=== PATIENT | male | born 1945 | race Caucasian/White ===

== ENCOUNTER 2017-10-31 14:50 | Emergency (ER) | payer MEDICAID, OTHER ==
[~2017-10-31] VITALS: Ht 165.1 cm; Wt 77.1 kg
--- NOTE | 2017-10-31 14:50 | NUR ---
LEFT EYE PAIN X 2 WEEKS.
[2017-10-31] MEDS: TETRACAINE HCL 0.5% OPHTALMIC 15 ML BOTTLE OP ONE (15:30)
[2017-10-31] MEDS: FLUORESCEIN SODIUM OPHTH 1 EA STRIP OP ONE (15:56)
[2017-10-31 15:57] VITALS: BP 120/75
--- NOTE | 2017-10-31 15:57 | NUR ---
Patient discharged to home in stable condition. Written and verbal after care instructions given. Patient verbalizes understanding of instruction.
== END 2017-10-31 16:11 | disposition home or self-care (01) ==
LOC: ER 14:54
DX: H53.9 Unspecified visual disturbance (principal); E11.9 Type 2 diabetes mellitus without complications; I10 Essential (primary) hypertension
CPT/HCPCS: A4606; Z7610

== ENCOUNTER 2018-01-30 11:23 | Emergency (ER) | payer MEDICAID ==
[~2018-01-30] VITALS: Ht 165.1 cm; Wt 72.1 kg
[2018-01-30 11:23] VITALS: BP 133/61
== END 2018-01-30 12:40 | disposition home or self-care (01) ==
LOC: ER 11:24
DX: H61.23 Impacted cerumen, bilateral (principal); I10 Essential (primary) hypertension; E11.9 Type 2 diabetes mellitus without complications
CPT/HCPCS: A4606; Z7610

== ENCOUNTER 2019-01-29 16:44 | Emergency (ER) | payer MEDICAID, OTHER ==
[~2019-01-29] VITALS: Ht 165.1 cm; Wt 70.8 kg
[2019-01-29 17:02] VITALS: BP 142/79
--- NOTE | 2019-01-29 18:24 | NUR ---
Patient discharged to home in stable condition. Written and verbal after care instructions given. Patient verbalizes understanding of instruction.
== END 2019-01-29 18:26 | disposition home or self-care (01) ==
LOC: ER 16:49
DX: H61.23 Impacted cerumen, bilateral (principal); I10 Essential (primary) hypertension; E11.9 Type 2 diabetes mellitus without complications